=== PATIENT | male | born 1985 | race Caucasian/White ===

== ENCOUNTER 2024-06-12 01:20 | Emergency (ER) | payer OTHER ==
[2024-06-12] MEDS ORDERED: MAGNESIUM/ALUMINUM HYDROXIDE/SIMETHICONE 30ML UDC PO ONE (01:45)
== END 2024-06-12 02:15 | disposition left against medical advice (07) ==
LOC: ER 01:20
DX: R10.9 Unspecified abdominal pain (principal); R06.02 Shortness of breath; K21.9 Gastro-esophageal reflux disease without esophagitis
CPT/HCPCS: 99281